=== PATIENT | male | born 1940 | race Caucasian/White ===

== ENCOUNTER → 2017-11-26 | Outpatient (CLI) | payer MEDICARE ==
--- NOTE | 2017-11-26 15:57 | XR ---
EXAMINATION TYPE: XR chest 2V DATE OF EXAM: 11/26/2017 COMPARISON: NONE HISTORY: Cough with COPD. TECHNIQUE: Frontal and lateral views of the chest are obtained. FINDINGS: There is no focal air space opacity, pleural effusion, or pneumothorax seen. Left basilar subsegmental platelike atelectasis is incidentally noted. The cardiac silhouette size is within norm al limits. The osseous structures are intact. Mild multilevel degenerative disc disease of the thor acic spine is noted. IMPRESSION: No acute cardiopulmonary process.
== END | disposition home or self-care (01) ==
LOC: RADXRMAIN 14:35
PROVIDERS: ATTEND Family Medicine
DX: R05 Cough (principal)
CPT/HCPCS: 71046

== ENCOUNTER → 2018-08-10 | Outpatient (CLI) | payer MEDICARE ==
[2018-08-10 08:25] LABS: Basophils # (A) 0.1 k/uL (0-0.2); Basophils % (A) 1 %; Eosinophils # (A) 0.2 k/uL (0-0.7); Eosinophils % (A) 3 %; HCT 42.3 % (39.0-53.0); HGB 13.9 gm/dL (13.0-17.5); Lymphocytes # (A) 2.4 k/uL (1.0-4.8); Lymphocytes % (A) 37 %; MCH 31.3 pg (25.0-35.0); MCHC 32.9 g/dL (31.0-37.0); MCV 94.9 fL (80.0-100.0); Mean Platelet Volume 7.6; Monocytes # (A) 0.5 k/uL (0-1.0); Monocytes % (A) 7 %; Neutrophils # (A) 3.1 k/uL (1.3-7.7); Neutrophils % (A) 49 %; Platelet Count 247 k/uL (150-450); RBC 4.46 m/uL (4.30-5.90); RDW 13.4 % (11.5-15.5); WBC 6.4 k/uL (3.8-10.6)
[2018-08-10 08:46] LABS: Albumin 3.9 g/dL (3.5-5.0); Calcium 9.7 mg/dL (8.4-10.2); Potassium 5.4 mmol/L (3.5-5.1); Total Bilirubin 0.4 mg/dL (0.2-1.3); Total Protein 6.9 g/dL (6.3-8.2)
== END | disposition home or self-care (01) ==
LOC: LABWHC1 07:27
PROVIDERS: ATTEND Family Medicine
DX: Z00.00 Encounter for general adult medical examination without abnormal findings (principal)
CPT/HCPCS: 36415; 80053; 80061; 84443; 85025

== ENCOUNTER 2018-10-05 10:04 | Day surgery (SDC) | payer MEDICARE ==
[2018-10-03 15:36] VITALS: BMI 33.3
[~2018-10-05 10:04] MED LIST: BUPIVACAINE (PF) 0.5% 4.5 ML, HYALURONIDASE, HUMAN RECOMB 150 UNIT, LIDOCAINE 2% (PF) 9... IO NR; LACTATED RINGERS 1,000 ML IV SCH; LIDOCAINE 1% 20 ML VIAL (10MG/ML) FOR IV START INTRADERMA PRN; MOXIFLOXACIN HCL 0.5% DROPS 3 ML BTL OP NR; ONDANSETRON 4 MG/2 ML VIAL IVP ONE
[2018-10-05] MEDS: TOBRAMYCIN 0.3% OPHTH DROPS 5 ML BTL LEFT EYE SCH ×4 (11:40→12:25)
[2018-10-05 11:59] VITALS: TEMP 98.2
[2018-10-05] MEDS ORDERED: PROPOFOL 10 MG/ML 20 ML VIAL IV ONE (12:42)
[2018-10-05] MEDS ORDERED: fentaNYL (PF) 50 MCG/ML 2 ML AMP ONE (12:42)
[2018-10-05] MEDS ORDERED: BALANCED SALT IRRIG SOLN COMB2 15 ML IRRIG.SOLN IRRIGATION ONE (12:52)
[2018-10-05] MEDS ORDERED: EPINEPHrine (PF) 0.3 ML in BALANCED SALT IRRIG SOLN COMB2 500 ML IRRIGATION ONE (12:53)
[2018-10-05] MEDS ORDERED: LIDOCAINE 1%-EPI 1:100,000 30 ML VIAL SQ ONE (14:01)
[2018-10-05] MEDS ORDERED: TETRACAINE 0.5% OPHTH (PF) DROPS 4 ML BTL LEFT EYE ONE (14:01)
--- NOTE | 2018-10-05 14:23 | P.OP ---
Date of Procedure: 10/05/18 Postoperative Diagnosis: XT left Procedure(s) Performed: same Implants: Recess/resect left Anesthesia: MAC, regional Surgeon: Benjamin Nielson Pathology: none sent Condition: stable Disposition: same day Indications for Procedure: double vision Operative Findings: No complications
[2018-10-05 14:57] VITALS: BP 166/88; PULSE 70; RESP 18
--- NOTE | 2018-10-05 23:38 | OP ---
OPERATIVE REPORT PROCEDURE: Medial rectus recession of 5 mm and lateral rectus recession of 6.5 mm of the left eye. PREOPERATIVE DIAGNOSIS: Intermittent exotropia with double vision. POSTOPERATIVE DIAGNOSIS: Intermittent exotropia with double vision. SURGEON: Dr. Benjamin Nielson. ANESTHESIA: Retrobulbar. ESTIMATED BLOOD LOSS: Less than 5 mL. SPECIMENS TAKEN: None. NARRATIVE: After obtaining the appropriate consent, the patient was brought to the operating room. There he was placed under cardiac monitoring. He was given propofol to put him into a twilight state and was then injected into the retrobulbar space using a 26-gauge Ann needle on a control syringe. A solution of 0.75% bupivacaine 1% lidocaine and hyaluronidase. Approximately 60 mL of this solution was injected into the retrobulbar space and a Honan balloon was placed on the eye at 40 mm for approximately 10 minutes. After confirming adequate anesthesia, he was then prepped and draped in the usual sterile manner. He was approached from the 12 o'clock position. Initial procedure on the eye was to confirm no undue restriction on the globe. The test was performed with without difficulty. Attention was first directed at the medial rectus and a conjunctival incision was created at about the 8 o'clock position using Debbie scissors down to bare sclera. Using a Green's hook, the medial rectus muscle was identified and the conjunctiva was brought over the tip of the muscle hook. A second Green's hook was then used to separate all adhesions from in and around the medial rectus muscle. It's original insertion point was marked with gentian jose. Using a bear care caliper, approximately 5 mm posterior to the limbus was identified and marked on the medial rectus muscle. Using 5-0 polyester suture, the central vascular core was tied off. This was followed by weaving each half of the muscle belly with a suture locking off the lateral edges of the muscle. The muscle was then amputated just distally from the suture placement within the muscle and the base of the muscle was amputated at its original insertion. The short muscle was now brought to the original insertion site and secured with the polyester suture using multiple knots to reduce slippage. Attention was then directed to the lateral rectus and performing a similar conjunctival incision down to bare sclera at the 4 o'clock position was performed again using a Green's hook. The lateral rectus was identified and all adhesions were from anteriorly and posteriorly to the muscle. Again a 5-0 Dacron suture was used to tie off the central vascular core and each half of the remaining double-arm suture was passed through each edge of the muscle belly, locking off the muscle. The muscle was then amputated from its original insertion site and a darren again using a bear care caliper was placed approximately 6.5 mm posterior to the original insertion. At this site the needle was passed partial thickness through the scleral wall and the suture was securely tied with multiple knots to reduce slippage. Conjunctival tissue in both areas was gently brought back into the original insertion and to ensure proper closure. A single 8-0 Vicryl suture was used to close the nasal and temporal areas where the incision was started. At the end of the case the patient received Maxitrol ointment, was patched and shielded in the usual manner. There were no complications from the procedure. He tolerated the procedure well and was returned to outpatient recovery in good condition. MMDORYL / IJN: [id number] /
== END 2018-10-05 15:01 | disposition home or self-care (01) ==
LOC: OR 10:04
PROVIDERS: ATTEND Ophthalmology
DX: H50.332 Intermittent monocular exotropia, left eye (principal); H53.2 Diplopia; H53.002 Unspecified amblyopia, left eye; H16.103 Unspecified superficial keratitis, bilateral; H04.129 Dry eye syndrome of unspecified lacrimal gland; H00.026 Hordeolum internum left eye, unspecified eyelid; H00.023 Hordeolum internum right eye, unspecified eyelid; H52.223 Regular astigmatism, bilateral; H52.4 Presbyopia; H52.03 Hypermetropia, bilateral; H02.822 Cysts of right lower eyelid; M10.9 Gout, unspecified; I11.9 Hypertensive heart disease without heart failure; J43.9 Emphysema, unspecified; Z96.1 Presence of intraocular lens; Z79.82 Long term (current) use of aspirin; Z79.899 Other long term (current) drug therapy; Z86.73 Personal history of transient ischemic attack (TIA), and cerebral infarction without residual deficits; Z87.891 Personal history of nicotine dependence
CPT/HCPCS: 67312; J3470; J2001; J0171; J3010; J2704

== ENCOUNTER → 2019-08-11 | Outpatient (CLI) | payer MEDICARE ==
--- NOTE | 2019-08-11 14:54 | XR ---
EXAMINATION TYPE: XR chest 2V DATE OF EXAM: 08/11/2019 COMPARISON: Chest x-ray 11/26/2017 HISTORY: Cough TECHNIQUE: Frontal and lateral views of the chest are obtained. FINDINGS: Probable scarring along the left lung base. There is no pleural effusion or pneumothorax se en. The cardiac silhouette size is within normal limits. Postop changes are noted to the right shoul alonso. The osseous structures are intact. IMPRESSION: No acute cardiopulmonary process.
== END | disposition home or self-care (01) ==
LOC: RADXRMAIN 12:17
PROVIDERS: ATTEND Family Medicine
DX: R05 Cough (principal)
CPT/HCPCS: 71046

== ENCOUNTER → 2019-08-29 | Outpatient (CLI) | payer MEDICARE ==
[2019-08-29 11:38] LABS: Basophils % (A) 0 %; Eosinophils # (A) 0.2 k/uL (0-0.7); Eosinophils % (A) 2 %; HCT 43.3 % (39.0-53.0); HGB 14.3 gm/dL (13.0-17.5); Lymphocytes # (A) 2.5 k/uL (1.0-4.8); Lymphocytes % (A) 30 %; MCH 31.3 pg (25.0-35.0); MCV 94.7 fL (80.0-100.0); Mean Platelet Volume 6.2; Monocytes # (A) 0.5 k/uL (0-1.0); Monocytes % (A) 6 %; Neutrophils # (A) 4.9 k/uL (1.3-7.7); Neutrophils % (A) 59 %; Platelet Count 267 k/uL (150-450); RBC 4.57 m/uL (4.30-5.90); RDW 12.7 % (11.5-15.5); WBC 8.2 k/uL (3.8-10.6)
[2019-08-29 16:26] LABS: African American GFR (CKD) 74.7 (60.0-200.0); Albumin 4.5 g/dL (3.80-4.90); Albumin/Globulin Ratio 2.25 (1.60-3.17); Anion Gap 8.6 mmol/L (4.00-12.00); BUN/Creat Ratio 17.27 Ratio (12.00-20.00); Calcium 9.5 mg/dL (8.7-10.3); Carbon Dioxide 29.4 mmol/L (21.6-31.8); Chol/HDL Ratio 3.94; LDL Cholesterol,Calculated 110.2 mg/dL (0.0-131.0); Total Bilirubin 0.7 mg/dL (0.2-1.2); Total Protein 6.5 g/dL (6.2-8.2); VLDL Calculation 30.8 mg/dL (5.00-40.00)
== END | disposition home or self-care (01) ==
LOC: LABWHC1 09:23
PROVIDERS: ATTEND Family Medicine
DX: Z00.00 Encounter for general adult medical examination without abnormal findings (principal); I10 Essential (primary) hypertension
CPT/HCPCS: 36415; 80053; 80061; 84443; 85025

== ENCOUNTER → 2020-08-26 | Outpatient (CLI) | payer MEDICARE ==
[2020-08-26 09:39] LABS: HCT 45.1 % (39.0-53.0); HGB 14.1 gm/dL (13.0-17.5); MCH 30.3 pg (25.0-35.0); MCHC 31.3 g/dL (31.0-37.0); MCV 96.8 fL (80.0-100.0); Mean Platelet Volume 7.1; Platelet Count 268 k/uL (150-450); RBC 4.66 m/uL (4.30-5.90); RDW 13.1 % (11.5-15.5); WBC 7.6 k/uL (3.8-10.6)
[2020-08-26 14:32] LABS: ALT 21 U/L (10-49); AST 22 U/L (14-35); African American GFR (CKD) 83.2 (60.0-200.0); Albumin/Globulin Ratio 1.79 (1.60-3.17); Alkaline Phosphatase 64 U/L (41-126); Calcium 9.5 mg/dL (8.7-10.3); Carbon Dioxide 28.2 mmol/L (21.6-31.8); Chloride 107 mmol/L (96-109); Chol/HDL Ratio 3.67; Cholesterol 180 mg/dL (0-200); Globulin 2.4 g/dL (1.6-3.3); Glucose 98 mg/dL (70-110); LDL Cholesterol,Calculated 105.4 mg/dL (0.0-131.0); Non-African American GFR(CKD) 71.8 (60.0-200.0); Potassium 5.2 mmol/L (3.5-5.5); Sodium 142 mmol/L (135-145); Total Bilirubin 0.6 mg/dL (0.2-1.2); Total Protein 6.7 g/dL (6.2-8.2)
[2020-08-26 15:04] LABS: Prostate Specific Antigen <0.1 ng/mL (0.0-6.5)
== END | disposition home or self-care (01) ==
LOC: LABWHC1 08:03
PROVIDERS: ATTEND Family Medicine
DX: C61 Malignant neoplasm of prostate (principal); I10 Essential (primary) hypertension; J44.9 Chronic obstructive pulmonary disease, unspecified; I63.9 Cerebral infarction, unspecified
CPT/HCPCS: 36415; 80053; 80061; 84153; 84443; 85027

== ENCOUNTER 2024-07-20 12:31 | Emergency (ER) | payer MEDICARE ==
[2024-07-20] MEDS: LORazepam 2 MG/ML INJ IV STA ×2 (12:34→12:52)
[2024-07-20] MEDS: SODIUM CHLORIDE 0.9% 1,000 ML IV STA (12:34)
[2024-07-20 12:47] LABS: Glucose,Whole Blood 113 mg/dL (70-110)
[2024-07-20] MEDS: levETIRAcetam IV 500 MG/5 ML VIAL IVP STA (12:52)
--- NOTE | 2024-07-20 13:03 | ED ---
General Adult HPI - General Stated complaint: poss CVA Time Seen by Provider: 07/20/24 12:31 Source: EMS, RN notes reviewed, old records reviewed - History of Present Illness Initial comments: Patient is an 83-year-old male with past medical history known of hypertension as well as prior CVA with residual visual deficits presents emergency department as a possible stroke. All of history is obtained from EMS as the patient had a seizure upon arrival to the emergency department and is currently postictal. Last known well was at approximately 10:30 AM this morning, which is approximately 2 hours prior to arrival. Baseline seems to be ANO x 4. When EMS arrived, patient was with neighbors not . Patient had a flaccid left upper extremity as well as dysarthria but was understandable. EMS brought the patient to the emergency department for evaluation. Upon arrival, patient was beginning to see us when they were moving him from the stretcher onto the ER stretcher. Patient had a tonic-clonic seizure at that time that lasted approximately 1 to 2 minutes and patient was administered 2 mg of IM Ativan. - Related Data Home Medications Medication Instructions Recorded Confirmed Dipyridamole-Aspirin 200-25 mg 1 each PO DAILY 10/03/18 10/03/18 [Aggrenox] Losartan Potassium [Cozaar] 100 mg PO HS 10/03/18 10/03/18 Multivitamins, Thera [Multivitamin 1 tab PO DAILY 10/03/18 10/03/18 (formulary)] Tiotropium [place] [Spiriva 2 spray INHALATION DAILY 10/03/18 10/03/18 Respimat] Indomethacin [Indocin] 50 mg PO PRN 10/05/18 [place]-3 Fatty Acids/Fish Oil 1,300 mg PO DAILY 10/05/18 10/05/18 [[place]-3 Fish Oil 1,200 mg Sfgl] Ubiquinol [Co-Veratrol] 100 mg PO DAILY 10/05/18 10/05/18 Allergies Allergy/AdvReac Type Severity Reaction Status Date / Time No Known Allergies Allergy Verified 10/05/18 11:46 Review of Systems ROS Statement: Those systems with pertinent positive or pertinent negative responses have been documented in the HPI. ROS Other: All systems not noted in ROS Statement are negative. Past Medical History Past Medical History: Cancer, COPD, CVA/TIA Additional Past Medical History / Comment(s): cva-2007,2012, prostate History of Any Multi-Drug Resistant Organisms: None Reported Past Surgical History: Joint Replacement, Prostate Surgery Additional Past Surgical History / Comment(s): hemorrhoid, vasectomy, rt rotator cuff,cystoscopy, lt hip replacement, stephane cataract surgery Past Anesthesia/Blood Transfusion Reactions: Motion Sickness Past Psychological History: No Psychological Hx Reported Past Alcohol Use History: Daily Additional Past Alcohol Use History / Comment(s): quit 2011,smoked [id number] 1 pk/2 days Past Drug Use History: None Reported - Past Family History Mother Family Medical History: Cancer General Exam - General Exam Comments Initial Comments: General: Appears in no acute distress. HEAD: Normal with no signs of head trauma. EYES: PERRLA, EOMI, conjunctiva normal, no discharge. Pupils are 2 mm and equal bilaterally. ENT: Hearing grossly intact, normal oropharynx. Bleeding from the tongue secondary to tongue laceration. Patient has an approximately 1 cm tongue laceration.Bleeding is controlled. RESPIRATORY: Clear breath sounds bilaterally. No wheezes, rales, or rhonchi. C/V: Regular rate and rhythm. S1 and S2 auscultated, no edema, peripheral pulses 2+ and intact throughout ABD: Abd is soft, nontender, nondistended EXT: Normal range of motion, no obvious deformity SKIN: No rashes or lesions observed on exposed skin. NEURO: Not alert or oriented but patient appears currently postictal and patient has received Ativan. Unable to obtain an accurate NIH. NIH per EMS was 3-4 based on their exam for left upper extremity paralysis as well as dysarthria. Course Vital Signs 07/20/24 07/20/24 07/20/24 12:35 13:18 13:30 Pulse Rate 129 H 109 H 98 Respiratory 20 17 16 Rate Blood Pressure 188/66 137/103 106/81 O2 Sat by Pulse 98 96 84 L Oximetry 07/20/24 07/20/24 13:45 14:00 Pulse Rate 105 H Respiratory 26 H Rate Blood Pressure 106/81 137/79 O2 Sat by Pulse 87 L 92 L Oximetry Medical Decision Making - Medical Decision Making Was pt. sent in by a medical professional or institution (, PA, MASTICATOR, urgent care, hospital, or halfway...) When possible be specific @ -No Did you speak to anyone other than the patient for history (EMS, parent, family, police, friend...)? What history was obtained from this source @ -EMS provided most of the patient's past medical history.Patient's present at bedside after CT images. Was not with the patient this morning. Does state patient is a full code. Patient is on aspirin and Plavix. No known falls or trauma per patient's . Baseline is alert and oriented x 4 with the visual issues from previous stroke. No history of seizures. Did you review nursing and triage notes (agree or disagree)? Why? @ -I reviewed and agree with nursing and triage notes Were old charts reviewed (outside hosp., previous admission, EMS record, old EKG, old radiological studies, urgent care reports/EKG's, halfway records)? Report findings @ -Medication list reviewed which showed patient was previously on Plavix but unknown if he is currently taking it. Also history of being on aspirin. Differential Diagnosis (chest pain, altered mental status, abdominal pain women, abdominal pain men, vaginal bleeding, weakness, fever, dyspnea, syncope, headac he, dizziness, GI bleed, back pain, seizure, CVA, palpatations, mental health, musculoskeletal)? @ -Differential CVA Ischemic stroke, hemorrhagic stroke, brain tumor, atypical migraine, Wernicke's encephalopathy, seizure, multiple sclerosis, meningitis, encephalitis, hypoglycemia, Guillain-Araiza, electrolytes disturbance, myasthenia gravis.... This is not meant to be an all-inclusive list Differential Seizure: Recurrent seizure disorder, febrile seizure, alcohol withdrawal, stimulants, meningitis, encephalitis, intercranial hemorrhage, intracranial tumor, stroke, eclampsia, thyrotoxicosis, hypocalcemia, hyponatremia, hypernatremia, hypomagnesemia, psychogenic, this is not meant to be an all-inclusive list. EKG interpreted by me (3pts min.). @ -As above X-rays interpreted by me (1pt min.). @ -Chest x-ray reveals no obvious acute cardiopulmonary process.Patient had a poor inspiratory effort with atelectasis. CT interpreted by me (1pt min.). @ -CT brain and CT angiogram head and neck interpreted by Dr. Falcon as well as myself. No obvious acute intracranial hemorrhage or process. Dr. Shah to evaluate the CTA and did not interpret any large vessel occlusion. U/S interpreted by me (1pt. min.). @ -None done What testing was considered but not performed or refused? (CT, X-rays, U/S, labs)? Why? @ -None What meds were considered but not given or refused? Why? @ -None Did you discuss the management of the patient with other professionals (professionals i.e. , PA, MASTICATOR, lab, RT, psych nurse, social science manager, technologist development, teacher, fourth officer, watch case polisher)? Give summary @ -I discussed management with neurocritical care on-call, Dr. Falcon. Patient was made a code thrombolytic. Relative exclusionary criteria does include patient's age as well as seizure. We discussed management for the patient and he was in agreement plan for stat CT and CTA. Was in agreement with plan for the Ativan for seizures as well as the IV Keppra bolus. Plan is for thrombolytics if patient has an obvious large vessel occlusion but otherwise medical management. Recommended transfer to [facility] either way. I will update him on any clinical changes. I spoke with [facility] accepting ER physician Dr. Sahu who accepted the transfer. He will also be updated if any clinical change for the patient. CT imaging negative for any obvious acute hemorrhage or process. No obvious acute stroke. Confirm with Dr. Falcon who was interpreting and on the phone with me while he spoke with him. Still reiterated that the patient should be transferred to [facility] for which EMS is already here waiting. Recommended administering aspirin. Recommended transfer for seizure and status epilepticus workup. Recommended no thrombolytics at this time. Was smoking cessation discussed for >3mins.? @ -No Was critical care preformed (if so, how long)? @ -Yes, 31 minutes Were there social determinants of health that impacted care today? How? (Homelessness, low income, unemployed, alcoholism, drug addiction, transportation, low edu. Level, literacy, decrease access to med. care, assisted, rehab)? @ -No Was there de-escalation of care discussed even if they declined (Discuss DNR or withdrawal of care, Hospice)? DNR status @ -No What co-morbidities impacted this encounter? (DM, HTN, Smoking, COPD, CAD, Cancer, CVA, ARF, Chemo, Hep., AIDS, mental health diagnosis, sleep apnea, morbid obesity)? @ -Prior CVA with residual visual deficits Was patient admitted / discharged? Hospital course, mention meds given and route, prescriptions, significant lab abnormalities, going to OR and other pertinent info. @ -Based on the patient's presentation and physical exam, patient presents emergency department complaining of possible CVA. Patient was seizing upon presentation. Based on the NIH per EMS, he had at least an NIH of 3-4. Last known well was 10:30 AM which is 2 hours ago. Patient was administered 2 mg IM Ativan which did help with the patient's seizure. He is postictal following. Was given a dose of IV Keppra as well as started on IV fluids. Patient is mildly hypertensive. Patient was made a code thrombolytic despite the relative contraindications of his age as well as new onset seizure. I discussed management with neurocritical care on-call, Dr. Falcon. Patient was made a code thrombolytic. Relative exclusionary criteria does include patient's age as well as seizure. We discussed management for the patient and he was in agreement plan for stat CT and CTA. Was in agreement with plan for the Ativan for seizures as well as the IV Keppra bolus. Plan is for thrombolytics if patient has an obvious large vessel occlusion but otherwise medical management. Recommended transfer to [facility] either way. I will update him on any clinical changes. I spoke with [facility] accepting ER physician Dr. Sahu who accepted the transfer. He will also be updated if any clinical change for the patient. CT imaging negative for any obvious acute hemorrhage or process. No obvious acute stroke. Confirm with Dr. Falcon who was interpreting and on the phone with me while he spoke with him. Still reiterated that the patient should be transferred to [facility] for which EMS is already here waiting. Recommended administering aspirin. Recommended transfer for seizure and status epilepticus workup.Recommended no thrombolytics at this time.Risks far outweigh the benefits. Multiple relative exclusion criterias. Patient does have some r ecovery of function. Patient's tongue laceration did have controlled bleeding at this time. Patient remains postictal at time of transfer. Will transfer on oxygen. He is a little wheezy and will be given a breathing treatment prior to transfer.Patient did have a documented low oxygen saturation however he is mouth breathing and his postictal state while he is sleeping likely has some degree of sleep apnea. When he is laying still oxygen saturations remained 90 to 93%. Patient protecting airway at time of discharge. Prior to transfer, and his postictal state patient was moving the left upper extremity which per EMS prior to arrival was the paralyzed extremity. This seems to be an improvement in symptoms. Still difficult to interpret NIH at this time. Undiagnosed new problem with uncertain prognosis? @ -No Drug Therapy requiring intensive monitoring for toxicity (Heparin, Nitro, I nsulin, Cardizem)? @ -No Were any procedures done? @ -No Diagnosis/symptom? @ -CVA, new onset seizure and postictal state Acute, or Chronic, or Acute on Chronic? @ -Acute Uncomplicated (without systemic symptoms) or Complicated (systemic symptoms)? @ -Complicated Side effects of treatment? @ -No Exacerbation, Progression, or Severe Exacerbation? @ -No Poses a threat to life or bodily function? How? (Chest pain, [place], MT, pneumonia, PE, COPD, DKA, ARF, appy, cholecystitis, CVA, Diverticulitis, Homicidal, Suicidal, threat to staff... and all critical care pts) @ -Yes - Lab Data Result diagrams: 07/20/24 12:35 07/20/24 12:35 Lab Results 07/20/24 07/20/24 07/20/24 Range/Units 12:35 12:35 12:35 WBC 14.9 H (3.8-10.6) k/uL RBC 5.28 (4.30-5.90) m/uL Hgb 15.7 (13.0-17.5) gm/dL Hct 50.7 (39.0-53.0) % MCV 95.9 (80.0-100.0) fL MCH 29.7 (25.0-35.0) pg MCHC 31.0 (31.0-37.0) g/dL RDW 14.0 (11.5-15.5) % Plt Count 355 (150-450) k/uL MPV 8.1 Neutrophils % (Manual) 57 % Lymphocytes % (Manual) 34 % Monocytes % (Manual) 7 % Eosinophils % (Manual) 2 % Neutrophils # (Manual) 8.49 H (1.3-7.7) k/uL Lymphocytes # (Manual) 5.07 H (1.0-4.8) k/uL Monocytes # (Manual) 1.04 H (0-1.0) k/uL Eosinophils # (Manual) 0.30 (0-0.7) k/uL Nucleated RBCs 0 (0-0) /100 WBC Manual Slide Review Performed RBC Morphology Normal Hypochromasia Marked PT 10.5 (10.0-12.5) sec INR 0.9 (<1.2) APTT 27.5 (22.0-30.0) sec Sodium 144 (137-145) mmol/L Potassium 3.5 (3.5-5.1) mmol/L Chloride 107 (98-107) mmol/L Carbon Dioxide 11 L (22-30) mmol/L Anion Gap 26 mmol/L BUN 21 H (9-20) mg/dL Creatinine 1.36 H (0.66-1.25) mg/dL Est GFR (CKD-EPI)AfAm 56 (>60 ml/min/1.73 sqM) Est GFR (CKD-EPI)NonAf 48 (>60 ml/min/1.73 sqM) Glucose 134 H (74-99) mg/dL POC Glucose (mg/dL) (70-110) mg/dL POC Glu Child Care Associate ID Lactic Ac Sepsis Rflx Plasma Lactic Acid Gurpreet (0.7-2.0) mmol/L Calcium 10.2 (8.4-10.2) mg/dL Total Bilirubin 1.1 (0.2-1.3) mg/dL AST 27 (17-59) U/L ALT 20 (4-49) U/L Alkaline Phosphatase 89 (38-126) U/L Creatine Kinase 146 (55-170) U/L Total Protein 8.1 (6.3-8.2) g/dL Albumin 5.1 H (3.5-5.0) g/dL 07/20/24 07/20/24 07/20/24 Range/Units 12:35 12:36 13:21 WBC (3.8-10.6) k/uL RBC (4.30-5.90) m/uL Hgb (13.0-17.5) gm/dL Hct (39.0-53.0) % MCV (80.0-100.0) fL MCH (25.0-35.0) pg MCHC (31.0-37.0) g/dL RDW (11.5-15.5) % Plt Count (150-450) k/uL MPV Neutrophils % (Manual) % Lymphocytes % (Manual) % Monocytes % (Manual) % Eosinophils % (Manual) % Neutrophils # (Manual) (1.3-7.7) k/uL Lymphocytes # (Manual) (1.0-4.8) k/uL Monocytes # (Manual) (0-1.0) k/uL Eosinophils # (Manual) (0-0.7) k/uL Nucleated RBCs (0-0) /100 WBC Manual Slide Review RBC Morphology Hypochromasia PT (10.0-12.5) sec INR (<1.2) APTT (22.0-30.0) sec Sodium (137-145) mmol/L Potassium (3.5-5.1) mmol/L Chloride (98-107) mmol/L Carbon Dioxide (22-30) mmol/L Anion Gap mmol/L BUN (9-20) mg/dL Creatinine (0.66-1.25) mg/dL Est GFR (CKD-EPI)AfAm (>60 ml/min/1.73 sqM) Est GFR (CKD-EPI)NonAf (>60 ml/min/1.73 sqM) Glucose (74-99) mg/dL POC Glucose (mg/dL) 113 H (70-110) mg/dL POC Glu Child Care Associate ID Renee Shah Lactic Ac Sepsis Rflx Y Plasma Lactic Acid Gurpreet 18.6 H* (0.7-2.0) mmol/L Calcium (8.4-10.2) mg/dL Total Bilirubin (0.2-1.3) mg/dL AST (17-59) U/L ALT (4-49) U/L Alkaline Phosphatase (38-126) U/L Creatine Kinase (55-170) U/L Total Protein (6.3-8.2) g/dL Albumin (3.5-5.0) g/dL - EKG Data -: EKG Interpreted by Me EKG Comments: 12-lead Electrocardiogram Interpretation Note EKG was reviewed and interpreted by myself. 12-lead ECG performed at 1306 is interpreted by me as revealing sinus tachycardia at a rate of 105 beats per minute. Left axis deviation. DC interval is 209 ms, QRS durations 114 ms, QTc is 423 ms. PVC present.. There were no ST or T wave abnormalities to suggest myocardial ischemia or injury. R wave progression across the precordium was satisfactory. By my interpretation this EKG is non-diagnostic for acute ischemia. Critical Care Time Critical Care Time: Yes Total Critical Care Time: 31 Disposition Clinical Impression: Cerebrovascular accident (CVA), New onset seizure Disposition: OTHER INSTITUTION NOT DEFINED Condition: Serious Instructions (If sedation given, give patient instructions): Seizure/Epilepsy Discharge Instructions & Follow-Up Referrals: Nonstaff,Physician [REFERRING] - 1-2 days Time of Disposition: 13:41 - Out of Hospital Transfer - Req. Specs Out of Hospital Transfer - Requested Specifics: Other Emergency Center (transferred for escalation of care. CVA vs complex new onset seizure vs. status epilepticus)
[2024-07-20 13:07] LABS: HCT 50.7 % (39.0-53.0); HGB 15.7 gm/dL (13.0-17.5); Hypochromasia Marked; MCH 29.7 pg (25.0-35.0); MCV 95.9 fL (80.0-100.0); Mean Platelet Volume 8.1; Platelet Count 355 k/uL (150-450); RBC 5.28 m/uL (4.30-5.90); WBC 14.9 k/uL (3.8-10.6)
--- NOTE | 2024-07-20 13:07 | CT ---
EXAMINATION TYPE: CODE STROKE: CT brain wo contr DATE OF EXAM: 07/20/2024 COMPARISON: 09/13/2012 HISTORY: code stroke CT DLP: 1099.[address] of the brain was performed. Examination is limited by patient motion. The ventricles, basal cisterns and sulci overlying the cerebral convexities demonstrate mild enlargem ent. There is decreased attenuation right temporal parietal region which does not appear to be acute in nature. Additional areas of decreased attenuation left parietal occipital region limited given art ifact from patient motion. There is no evidence for intracranial hemorrhage or sulcal effacement. There is decreased attenuation about the periventricular white matter and deep white matter of both c erebral hemispheres, compatible with chronic small vessel ischemia. Differential diagnosis does inclu de demyelination. No mass effects are seen.No midline shift. Osseous calvarium is intact. If symptoms persist consider MRI. IMPRESSION: 1. Overall limited study given patient motion. No obvious evidence for intracranial hemorrhage. There is decreased attenuation are nonspecific although likely remote right temporal parietal region. [facility], , 07/20/2024 1:05 PM
[2024-07-20 13:08] LABS: INR 0.9 (<1.2); Partial Thromboplastin Time 27.5 sec (22.0-30.0); Prothrombin Time 10.5 sec (10.0-12.5)
[2024-07-20] MEDS: LORazepam 2 MG/ML INJ IM STA (13:09)
[2024-07-20 13:11] LABS: ALT 20 U/L (4-49); AST 27 U/L (17-59); African American GFR (CKD) 56 (>60 ml/min/1.73 sqM); Albumin 5.1 g/dL (3.5-5.0); Alkaline Phosphatase 89 U/L (38-126); Anion Gap 26 mmol/L; Blood Urea Nitrogen 21 mg/dL (9-20); Calcium 10.2 mg/dL (8.4-10.2); Carbon Dioxide 11 mmol/L (22-30); Chloride 107 mmol/L (98-107); Creatine Kinase 146 U/L (55-170); Glucose 134 mg/dL (74-99); Non-African American GFR(CKD) 48 (>60 ml/min/1.73 sqM); Potassium 3.5 mmol/L (3.5-5.1); Sodium 144 mmol/L (137-145); Total Bilirubin 1.1 mg/dL (0.2-1.3); Total Protein 8.1 g/dL (6.3-8.2)
--- NOTE | 2024-07-20 13:46 | CT ---
EXAMINATION TYPE: CT angio head neck DATE OF EXAM: 07/20/2024 COMPARISON: None HISTORY: Neuro deficit, acute, stroke suspected CONTRAST: Performed with IV Contrast, patient injected with 100 mL of Isovue 300. Combination Contrast CTA cervical carotids and [place] CTA cervical carotids with 3-D recons truction Contrast CTA of the cervical carotids was performed 3-D reconstruction imaging obtained at a separate workstation. Right carotid system: Mild plaque is seen of the right common carotid artery. There is moderate plaq ue also noted at the carotid bulb and proximal ICA. Estimated diameter reduction of at least 60%. Pa tient motion limits evaluation. ECA is patent. Right vertebral artery appears unremarkable. Left carotid system: Mild plaque is seen of the left common carotid artery. There is moderate plaque also noted at the carotid bulb and proximal ICA. Estimated diameter reduction of at least 60% proxi mal left ICA. Patient motion limits evaluation. ECA is patent. Left vertebral artery appears unremar kable. IMPRESSION: 1. Limited study by patient motion. At least 60% diameter reduction suggested of the bilateral proxim al ICAs. CTA [place] with 3-D reconstruction Contrast CTA of the [place] was performed 3-D reconstruction imaging obtained at a separate workstation. Vertebrobasilar system as well as intracranial portions of the internal carotid arteries and their ma laura tributaries appear patent patent although there is a Diminutive left MCA branch pattern. Correlat e clinically.I do not see evidence for sizable aneurysm or vascular malformation. Please note MRI pr ovides greater sensitivity and specificity. Visualized brain appears grossly unremarkable. IMPRESSION: 1. Diminutive left MCA branch pattern. Correlate clinically. NASCET criteria was used in interpretation of this exam? [facility], , 07/20/2024 1:43 PM
[2024-07-20] MEDS: ASPIRIN 300 MG SUPP RECTAL STA (13:51)
--- NOTE | 2024-07-20 13:55 | XR ---
EXAMINATION TYPE: XR chest 1V portable DATE OF EXAM: 07/20/2024 COMPARISON: 08/11/2019 HISTORY: Soreness of breath TECHNIQUE: Single frontal view of the chest is obtained. FINDINGS: Limited inspiration and patient rotation. Heart size mildly prominent and there is basilar subsegmental consolidation. No overt failure pneumothorax. No pleural effusion. Osteopenia and posts urgical change right shoulder. Degenerative change of the spine.. IMPRESSION: Basilar atelectasis favored over pneumonia correlate clinically. [facility], , 07/20/2024 1:53 PM
[2024-07-20] MEDS: IPRATROPIUM-ALBUTEROL 3 ML NEB INHALATION STA (13:58)
[2024-07-20 13:59] VITALS: PULSE 105; RESP 26
[2024-07-20 14:04] VITALS: BP 137/79
[2024-07-20 14:11] LABS: Lymphocytes # (M) 5.07 k/uL (1.0-4.8); Monocytes # (M) 1.04 k/uL (0-1.0); Neutrophils # (M) 8.49 k/uL (1.3-7.7); Neutrophils % (M) 57 %; Nucleated Red Blood Cells 0 /100 WBC (0-0); Total Cells Counted 100
[2024-07-20 14:12] LABS: RBC Morphology Normal
== END 2024-07-20 14:04 | disposition other institution (70) ==
LOC: EC 12:31
CPT/HCPCS: 36415; 70450; 70496; 70498; 71045; 80053; 82550; 83605; 85025; 85610; 85730; 93005; 96361; 96374; 96375; 96376; 99291

== ENCOUNTER 2024-11-15 00:20 | Emergency (ER) | payer MEDICARE ==
[2024-11-15] MEDS ORDERED: ETOMIDATE 2 MG/ML 10 ML VIAL ONE (00:23)
[2024-11-15 00:25] LABS: Glucose,Whole Blood 179 mg/dL (70-110)
[2024-11-15] MEDS: MIDAZOLAM 1 MG/ML 5 ML VIAL IV STA (00:29)
[2024-11-15] MEDS: fentaNYL (PF) 50 MCG/ML 2 ML AMP IVP STA (00:35)
[2024-11-15] MEDS ORDERED: fentaNYL (PF) 50 MCG/ML 2 ML AMP IVP PRN (00:37)
[2024-11-15] MEDS: SODIUM CHLORIDE 0.9% 1,000 ML IV STA (00:45)
[2024-11-15 00:46] LABS: Basophils # (A) 0.2 k/uL (0-0.2); Basophils % (A) 1 %; Eosinophils # (A) 0.2 k/uL (0-0.7); Eosinophils % (A) 1 %; HGB 15.1 gm/dL (13.0-17.5); Hypochromasia Marked; Lymphocytes % (A) 38 %; MCHC 30.2 g/dL (31.0-37.0); MCV 96.1 fL (80.0-100.0); Mean Platelet Volume 8.1; Monocytes # (A) 1.5 k/uL (0-1.0); Monocytes % (A) 7 %; Neutrophils # (A) 10.6 k/uL (1.3-7.7); Neutrophils % (A) 50 %; Platelet Count 306 k/uL (150-450); RBC 5.21 m/uL (4.30-5.90); RDW 13.8 % (11.5-15.5); WBC 21.1 k/uL (3.8-10.6)
--- NOTE | 2024-11-15 00:52 | ED ---
General Adult HPI - General Stated complaint: AMS, Seizures Source: EMS Mode of arrival: EMS Limitations: altered mental status - History of Present Illness Initial comments: Patient is a patient is an 83-year-old gentleman past medical history of prior CVA presenting today for altered mental status. Patient was last known normal 1 hour prior to arrival. He was found by his in bed unresponsive. EMS arrived patient required assisted ventilations. He had a 32nd tonic-clonic seizure followed by second seizure. He was given 4 mg IV Versed by EMS which did terminate his seizure. Patient was noted to have a left gaze deviation, pinpoint pupils, and otherwise was unresponsive. Patient had a stroke reportedly back in June. He is currently on Plavix. There is no concern for head trauma. Blood glucose for EMS was 190. - Related Data Home Medications Medication Instructions Recorded Confirmed Dipyridamole-Aspirin 200-25 mg 1 each PO DAILY 10/03/18 10/03/18 [Aggrenox] Losartan Potassium [Cozaar] 100 mg PO HS 10/03/18 10/03/18 Multivitamins, Thera [Multivitamin 1 tab PO DAILY 10/03/18 10/03/18 (formulary)] Tiotropium [place] [Spiriva 2 spray INHALATION DAILY 10/03/18 10/03/18 Respimat] Indomethacin [Indocin] 50 mg PO PRN 10/05/18 [place]-3 Fatty Acids/Fish Oil 1,300 mg PO DAILY 10/05/18 10/05/18 [[place]-3 Fish Oil 1,200 mg Sfgl] Ubiquinol [Co-Veratrol] 100 mg PO DAILY 10/05/18 10/05/18 Allergies Allergy/AdvReac Type Severity Reaction Status Date / Time No Known Allergies Allergy Verified 10/05/18 11:46 Review of Systems ROS Statement: Those systems with pertinent positive or pertinent negative responses have been documented in the HPI. ROS Other: All systems not noted in ROS Statement are negative. Past Medical History Past Medical History: Cancer, COPD, CVA/TIA Additional Past Medical History / Comment(s): cva-2007,2012, prostate History of Any Multi-Drug Resistant Organisms: None Reported Past Surgical History: Joint Replacement, Prostate Surgery Additional Past Surgical History / Comment(s): hemorrhoid, vasectomy, rt rotator cuff,cystoscopy, lt hip replacement, stephane cataract surgery Past Anesthesia/Blood Transfusion Reactions: Motion Sickness Past Psychological History: No Psychological Hx Reported Past Alcohol Use History: Daily Past Drug Use History: None Reported - Past Family History Mother Family Medical History: Cancer General Exam - General Exam Comments Initial Comments: PE: CONSTITUTIONAL: Apparent distress, unresponsive, actively receiving assisted ventilations SKIN: [Cool, dry, no jaundice, hives or petechiae trunk appears mottled] EYES:[ pupils are equally round, no spontaneous extraocular movements, no n ystagmus, pinpoint pupils left gaze deviation ] HENT: [normocephalic, atraumatic, moist mucus membranes, oropharynx clear without exudates] NECK: , [normal appearance] PULMONARY: [Scattered rhonchi bilaterally with assisted ventilations, bilateral breath sounds present ] CARDIOVASCULAR:[Tachycardia, regular rate and rhythm, normal S1 and S2. No appreciated murmurs, rubs or gallops. Strong radial pulses with intact distal perfusion. No lower extremity edema] GASTROINTESTINAL: [soft, active bowel sounds throughout, no guarding, mildly distended,. No hepatosplenomegaly] GENITOURINARY: MUSCULOSKELETAL: [Extremities have no gross deformity, no edema, redness, or swelling. ] NEUROLOGIC: [_a/o x 0, GCS of 3, left gaze deviation, does not withdraw extremities to painful stimuli in any of 4 extremities, no posturing] PSYCHIATRIC: Unable to assess Limitations: altered mental status Course Vital Signs 11/15/24 11/15/24 11/15/24 00:31 00:34 00:38 Temperature 98.9 F Pulse Rate 121 H Respiratory 20 Rate Blood Pressure 135/57 O2 Sat by Pulse 97 Oximetry Fraction of 100 100 Inspired Oxygen (FIO2) 11/15/24 11/15/24 11/15/24 00:59 01:00 01:10 Temperature Pulse Rate 108 H 108 H 105 H Respiratory 31 H 31 H 30 H Rate Blood Pressure 118/53 104/42 92/49 O2 Sat by Pulse 100 100 100 Oximetry Fraction of Inspired Oxygen (FIO2) 11/15/24 11/15/24 11/15/24 01:20 01:35 01:40 Temperature 98.4 F Pulse Rate 101 H 98 98 Respiratory 18 18 18 Rate Blood Pressure 90/44 91/45 93/52 O2 Sat by Pulse 100 100 100 Oximetry Fraction of Inspired Oxygen (FIO2) 11/15/24 11/15/24 01:45 01:50 Temperature 99.5 F Pulse Rate 96 97 Respiratory 18 18 Rate Blood Pressure 105/57 112/72 O2 Sat by Pulse 100 100 Oximetry Fraction of Inspired Oxygen (FIO2) - Reevaluation(s) Reevaluation #1: Case has been discussed with Dr. Luna, neurointerventional list at [facility]. As patient has been to [place] on before after having seizure-like activity back in June, he will review patient's chart, scans and coming back. 11/15/24 00:52 Reevaluation #2: Case discussed with Dr. Hall, who was able to evaluate patient's imaging and prior charts. No evidence of large vessel occlusion on CTA though it is a poor study, suspects likely status epilepticus however given sudden onset of symptoms with neurodeficits patient is still candidate for TNK. I will contact patient's to further discuss, patient will require transfer to [facility] for continuous EEG and further monitoring. 11/15/24 01:06 EKG Findings - EKG Comments: EKG Findings:: Ectopic atrial tachycardia, rate 120 bpm WI interval 157 ms QT/QTc 311/387 ms left axis deviation, complete right bundle branch block, no ST elevations or depressions, no STEMI. reviewed EKG from 07/20/2024, no new ST elevations or depressions from prior, largely unchanged from prior EKG Procedures - Intubation Sedative: Etomidate Laryngoscope: Rajesh Size: 3 Assist Device Used: other (Glydescope) ET Tube Size: 8 ET Tube Uncuffed: No Tube Secured Depth (cm): 26 Tube Secured Location: teeth Tube Placement Confirmation: visualized tube passing through cords, equal breath sounds bilaterally, no breath sounds over epigastrium, confirmation by capnometry Patient Tolerated Procedure: well Intubation Complications: none Medical Decision Making - Medical Decision Making Was pt. sent in by a medical professional or institution (, PA, DIRECTOR NON PROFIT, urgent care, hospital, or retirement...) When possible be specific @ -No Did you speak to anyone other than the patient for history (EMS, parent, family, police, friend...)? What history was obtained from this source Spoke with EMS personnel and patient's who assisted in providing history, patient states last known well was 8 PM last night Did you review nursing and triage notes (agree or disagree)? Why? @ -I reviewed nursing and triage notes Were old charts reviewed (outside hosp., previous admission, EMS record, old EKG, old radiological studies, urgent care reports/EKG's, retirement records)? Report findings @ -Medical records reviewed reviewed ED note from when patient was here June 2024 for seizure-like activity and left-sided weakness, ultimately patient did not receive TNK and was transferred to [facility] out of concern for status epilepticus Differential Diagnosis (chest pain, altered mental status, abdominal pain women, abdominal pain men, vaginal bleeding, weakness, fever, dyspnea, syncope, headache, dizziness, GI bleed, back pain, seizure, CVA, palpatations, mental health, musculoskeletal)? Differential Altered Mental Status: Hypoglycemia, DKA, hypercapnia, ETOH, overdose, CO poisoning, trauma, myxedema coma, HTN encephalopathy, infection, encephalitis, psychosis, intercranial hemorrhage, hepatic encephalopathy, meningitis, CVA, this is not meant to be an all-inclusive list EKG interpreted by me (3pts min.). @ -As above X-rays interpreted by me (1pt min.). @ET tube ~3 cm above the melany, no pneumothorax CT interpreted by me (1pt min.). CT brain reviewed myself I see no evidence of hemorrhage or mass effect, CTA liliam ws no evidence of large vessel occlusion or dissection, did appear to show ETT at the melany bordering on entering Right mainstem bronchus so ETT was retracted about 2 cm and CXR confirmed ETT more appropriately positioned U/S interpreted by me (1pt. min.). @ -None done What testing was considered but not performed or refused? (CT, X-rays, U/S, labs)? Why? @ -None What meds were considered but not given or refused? Why? @TNK was considered however confirmed with pt's that patient's last known well was 8 PM, outside the window for tNK administration Did you discuss the management of the patient with other professionals (professionals i.e. , PA, DIRECTOR NON PROFIT, lab, RT, psych nurse, socially responsible investment adviser, creosoting engineer, teacher, juvenile corrections officer, case loader operator)? Give summary @Case was discussed with Dr. To, please see ED course per recommendations, ultimately recommended patient be transferred for continuous EEG Was smoking cessation discussed for >3mins.? @ -No Was critical care preformed (if so, how long)? Yes 45 minutes Were there social determinants of health that impacted care today? How? (Homeles sness, low income, unemployed, alcoholism, drug addiction, transportation, low edu. Level, literacy, decrease access to med. care, long-term, rehab)? @ -No Was there de-escalation of care discussed even if they declined (Discuss DNR or withdrawal of care, Hospice)? CODE STATUS was discussed with patient's over the phone however she is unable to decide his CODE STATUS at this time so he will remain a full code What co-morbidities impacted this encounter? (DM, HTN, Smoking, COPD, CAD, Cancer, CVA, ARF, Chemo, Hep., AIDS, mental health diagnosis, sleep apnea, morbid obesity)? Prior CVA Was patient admitted / discharged? Hospital course, mention meds given and route, prescriptions, significant lab abnormalities, going to OR and other pertinent info. @Transferred to [facility]-patient is an 83-year-old male with a past medical hx prior CVA presenting today for unresponsiveness, 2-30-second seizures prior to arrival, agonal respirations requiring assisted ventilation, blood glucose 179 prior to arrival, no blood pressure check prior to arrival. Seen and assessed on arrival, he is unresponsive, he has pinpoint pupils left gaze deviation, does not withdraw extremities to painful stimuli, does not respond to sternal rub. Does have some dependant lividity to his trunk, but 2+ radial pulses and dorsalis pedis pulses bilateral with otherwise benign abdominal exam. No signs of head trauma. Patient intubated for airway protection. Stroke alert called due to left gaze deviation. CT, CTA performed, no evidence of hemorrhage or large vessel occlusion on my assessment. Dr. Quintanilla called back, if patient within window recommends TNK however discuss with . I called patient's , Samantha, states last known well was 8 PM so patient is not a candidate for TNK as he is outside of the 4.5 hour window. Discussed with her plan for transfer to [facility], she requested transfer to [facility] however discussed with her there is no neuro interventionalist there and he will require a neurointerventional list and continuous EEG, and the neuroninterventionalist hydraulic controls technician following the pts case is at [facility]. Ultimately she was agreeable to transfer. Case discussed with cain [facility] accepts pt for transfer. Patient to be transferred on propofol, fentanyl drip, IV fluids. Of note, pt was hypotensive prior to transfer which improved with down titrating propofol and adminstering fluids. Pt stabilized and transferred to [facility] . Undiagnosed new problem with uncertain prognosis? @ -No Drug Therapy requiring intensive monitoring for toxicity (Heparin, Nitro, Insulin, Cardizem)? @propofol, fentanyl Were any procedures done? @ -No Diagnosis/symptom? Seizures, status epilepticus Acute, or Chronic, or Acute on Chronic? Acute Uncomplicated (without systemic symptoms) or Complicated (systemic symptoms)? complicated Side effects of treatment? @ -No Exacerbation, Progression, or Severe Exacerbation? @ -No Poses a threat to life or bodily function? How? (Chest pain, [place], [place], pneumonia, PE, COPD, DKA, ARF, appy, cholecystitis, CVA, Diverticulitis, Homicidal, Suicidal, threat to staff... and all critical care pts) Yes - Lab Data Result diagrams: 11/15/24 00:29 11/15/24 00:29 Lab Results 11/15/24 11/15/24 11/15/24 Range/Units 00:23 00:29 00:29 WBC 21.1 H (3.8-10.6) k/uL RBC 5.21 (4.30-5.90) m/uL Hgb 15.1 (13.0-17.5) gm/dL Hct 50.0 (39.0-53.0) % MCV 96.1 (80.0-100.0) fL MCH 29.0 (25.0-35.0) pg MCHC 30.2 L (31.0-37.0) g/dL RDW 13.8 (11.5-15.5) % Plt Count 306 (150-450) k/uL MPV 8.1 Neutrophils % 50 % Lymphocytes % 38 % Monocytes % 7 % Eosinophils % 1 % Basophils % 1 % Neutrophils # 10.6 H (1.3-7.7) k/uL Lymphocytes # 8.0 H (1.0-4.8) k/uL Monocytes # 1.5 H (0-1.0) k/uL Eosinophils # 0.2 (0-0.7) k/uL Basophils # 0.2 (0-0.2) k/uL Hypochromasia Marked PT 10.5 (10.0-12.5) sec INR 0.9 (<1.2) APTT 32.2 H (22.0-30.0) sec Sample Site ABG pH (7.35-7.45) ABG pCO2 (35-45) mmHg ABG pO2 (83-108) mmHg ABG HCO3 (21-25) mmol/L ABG Total CO2 (19-24) mmol/L ABG O2 Saturation (94-97) % ABG Base Excess mmol/L Jesus Test Hemoglobin (13.0-17.5) gm/dL FiO2 % Sodium (137-145) mmol/L Potassium (3.5-5.1) mmol/L Chloride (98-107) mmol/L Carbon Dioxide (22-30) mmol/L Anion Gap mmol/L BUN (9-20) mg/dL Creatinine (0.66-1.25) mg/dL Est GFR (CKD-EPI)AfAm (>60 ml/min/1.73 sqM) Est GFR (CKD-EPI)NonAf (>60 ml/min/1.73 sqM) Glucose (74-99) mg/dL POC Glucose (mg/dL) 179 H (70-110) mg/dL POC Glu [employer] ID [place] Calcium (8.4-10.2) mg/dL Total Bilirubin (0.2-1.3) mg/dL AST (17-59) U/L ALT (4-49) U/L Alkaline Phosphatase (38-126) U/L Creatine Kinase (55-170) U/L Troponin I (0.000-0.034) ng/mL Total Protein (6.3-8.2) g/dL Albumin (3.5-5.0) g/dL 11/15/24 11/15/24 11/15/24 Range/Units 00:29 00:29 01:08 WBC (3.8-10.6) k/uL RBC (4.30-5.90) m/uL Hgb (13.0-17.5) gm/dL Hct (39.0-53.0) % MCV (80.0-100.0) fL MCH (25.0-35.0) pg MCHC (31.0-37.0) g/dL RDW (11.5-15.5) % Plt Count (150-450) k/uL MPV Neutrophils % % Lymphocytes % % Monocytes % % Eosinophils % % Basophils % % Neutrophils # (1.3-7.7) k/uL Lymphocytes # (1.0-4.8) k/uL Monocytes # (0-1.0) k/uL Eosinophils # (0-0.7) k/uL Basophils # (0-0.2) k/uL Hypochromasia PT (10.0-12.5) sec INR (<1.2) APTT (22.0-30.0) sec Sample Site rrad ABG pH 7.18 L* (7.35-7.45) ABG pCO2 31 L (35-45) mmHg ABG pO2 >420 H (83-108) mmHg ABG HCO3 12 L (21-25) mmol/L ABG Total CO2 13 L (19-24) mmol/L ABG O2 Saturation 99.8 H (94-97) % ABG Base Excess -15.3 mmol/L Jesus Test Yes Hemoglobin 12.9 L (13.0-17.5) gm/dL FiO2 100 % Sodium 141 (137-145) mmol/L Potassium 4.6 (3.5-5.1) mmol/L Chloride 98 (98-107) mmol/L Carbon Dioxide 8 L* (22-30) mmol/L Anion Gap 35 mmol/L BUN 16 (9-20) mg/dL Creatinine 1.43 H (0.66-1.25) mg/dL Est GFR (CKD-EPI)AfAm 53 (>60 ml/min/1.73 sqM) Est GFR (CKD-EPI)NonAf 46 (>60 ml/min/1.73 sqM) Glucose 211 H (74-99) mg/dL POC Glucose (mg/dL) (70-110) mg/dL POC Glu Mechanic And Welder ID Calcium 9.9 (8.4-10.2) mg/dL Total Bilirubin 0.9 (0.2-1.3) mg/dL AST 28 (17-59) U/L ALT 26 (4-49) U/L Alkaline Phosphatase 87 (38-126) U/L Creatine Kinase 140 (55-170) U/L Troponin I <0.012 (0.000-0.034) ng/mL Total Protein 8.1 (6.3-8.2) g/dL Albumin 5.1 H (3.5-5.0) g/dL Disposition Clinical Impression: Status epilepticus Disposition: OTHER INSTITUTION NOT DEFINED Condition: Critical Instructions (If sedation given, give patient instructions): Seizure/Epilepsy Discharge Instructions & Follow-Up Referrals: Frankie Ryan MD [Primary Care Provider] - 1-2 days - Out of Hospital Transfer - Req. Specs Out of Hospital Transfer - Requested Specifics: Other Emergency Center ([facility])
[2024-11-15] MEDS: levETIRAcetam IV 3,000 MG in SODIUM CHLORIDE 0.9% 250 ML IVPB ONE (01:03)
[2024-11-15 01:06] LABS: African American GFR (CKD) 53 (>60 ml/min/1.73 sqM); Albumin 5.1 g/dL (3.5-5.0); Anion Gap 35 mmol/L; Blood Urea Nitrogen 16 mg/dL (9-20); Calcium 9.9 mg/dL (8.4-10.2); Chloride 98 mmol/L (98-107); Creatine Kinase 140 U/L (55-170); Glucose 211 mg/dL (74-99); Non-African American GFR(CKD) 46 (>60 ml/min/1.73 sqM); Sodium 141 mmol/L (137-145); Total Bilirubin 0.9 mg/dL (0.2-1.3); Total Protein 8.1 g/dL (6.3-8.2)
[2024-11-15 01:13] LABS: INR 0.9 (<1.2); Partial Thromboplastin Time 32.2 sec (22.0-30.0); Prothrombin Time 10.5 sec (10.0-12.5)
[2024-11-15 01:15] LABS: ABG Base Excess -15.3 mmol/L; ABG HCO3 12 mmol/L (21-25); ABG Oxygen Saturation 99.8 % (94-97); ABG PCO2 31 mmHg (35-45); ABG TCO2 13 mmol/L (19-24); Allen Test Performed? Yes
[2024-11-15 01:17] LABS: ABG PH 7.18 (7.35-7.45); ABG PO2 >420 mmHg (83-108)
--- NOTE | 2024-11-15 01:18 | XR ---
EXAM: XR Chest, 1 View CLINICAL HISTORY: ITS.REASON XR Reason: intubated code stroke TECHNIQUE: Frontal view of the chest. COMPARISON: No relevant prior studies available. FINDINGS: Lungs: Unremarkable. No consolidation. Pleural space: Unremarkable. No pneumothorax. Heart: Unremarkable. No cardiomegaly. Mediastinum: Unremarkable. Normal mediastinal contour. Bones/joints: Unremarkable. No acute fracture. Tubes, lines and devices: Endotracheal tube with its tip above the melany. Esophageal catheter seen with its tip extending below left hemidiaphragm. IMPRESSION: No acute findings in the chest.
[2024-11-15] MEDS: SODIUM CHLORIDE 0.9% 1,000 ML IV ONE (01:21)
[2024-11-15 01:24] VITALS: RESP 18
--- NOTE | 2024-11-15 01:24 | CT ---
EXAM: CT Angiography Head With Intravenous Contrast CLINICAL HISTORY: ITS.REASON CT Reason: Neuro deficit, acute, stroke suspected TECHNIQUE: Axial computed tomographic angiography images of the head with intravenous contrast. This CT exam was performed using one or more of the following dose reduction techniques: automated exposure control, adjustment of the mA and/or kV according to patient size, and/or use of iterative reconstruction technique. MIP reconstructed images were created and reviewed. COMPARISON: 07/20/2024 FINDINGS: Limitations: Contrast bolus timing and motion limits exam. Right internal carotid artery: Calcified plaque in the carotid siphons. Some resultant stenosis, greatest in the right clinoid segment which is moderate. No aneurysm. Right anterior cerebral artery: No occlusion or significant stenosis. No aneurysm. Right middle cerebral artery: No occlusion or significant stenosis. No aneurysm. Right posterior cerebral artery: No occlusion or significant stenosis. No aneurysm. Right vertebral artery: Calcified plaque causes mild to moderate stenosis in the intracranial vertebral arteries. Left internal carotid artery: No acute findings. Intracranial segment is patent with no significant stenosis. No aneurysm. Left anterior cerebral artery: No occlusion or significant stenosis. No aneurysm. Left middle cerebral artery: No occlusion or significant stenosis. No aneurysm. Left posterior cerebral artery: No occlusion or significant stenosis. No aneurysm. Left vertebral artery: See above. Basilar artery: No occlusion or significant stenosis. No aneurysm. Other vasculature: Atherosclerotic narrowings in the intracranial arteries. IMPRESSION: 1. Limited study. 2. No large vessel occlusion or aneurysm. EXAM: CT Angiography Neck With Intravenous Contrast CLINICAL HISTORY: ITS.REASON CT Reason: Neuro deficit, acute, stroke suspected TECHNIQUE: Routine carotid CT angiography protocol was performed with intravenous contrast. NASCET criteria using the distal ICAs for comparison were used for evaluation of stenoses. This CT exam was performed using one or more of the following dose reduction techniques: automated exposure control, adjustment of the mA and/or kV according to patient size, and/or use of iterative reconstruction technique. MIP reconstructed images were created and reviewed. COMPARISON: 07/20/2024 FINDINGS: Limitations: Contrast bolus timing limits this exam. VASCULATURE: Right common carotid artery: No significant stenosis. No dissection or occlusion. Right internal carotid artery: 50-60% stenosis in the proximal right internal carotid artery. Calcified plaque in the carotid bifurcations and proximal internal carotid arteries. Right external carotid artery: No occlusion. Right vertebral artery: No significant stenosis. No dissection or occlusion. Left common carotid artery: No significant stenosis. No dissection or occlusion. Left internal carotid artery: Approximately 20% stenosis in the proximal left internal carotid artery. Left external carotid artery: No occlusion. Left vertebral artery: No significant stenosis. No dissection or occlusion. NECK: Bones/joints: No acute findings. Soft tissues: Unremarkable. Lung apices: No acute disease. Mediastinum: Patulous esophagus. Tubes, lines and devices: ET tube 8 mm above the melany. Recommend retraction by 2 cm. CAROTID STENOSIS REFERENCE USING NASCET CRITERIA: % ICA stenosis = (1 - narrowest ICA diameter/diameter of distal cervical ICA) x 100. Mild - <50% stenosis. Moderate - 50-69% stenosis. Severe - 70-94% stenosis. Near occlusion - 95-99% stenosis. Occluded - 100% stenosis. IMPRESSION: 1. 50-60% stenosis in the proximal right internal carotid artery. 2. Limited study. 3. ET tube 8 mm above the melany. Recommend retraction by 2 cm.
[2024-11-15] MEDS: fentaNYL (PF). 1,000 MCG in SODIUM CHLORIDE 0.9% 80 ML IV SCH (01:25)
--- NOTE | 2024-11-15 01:28 | CT ---
EXAM: CT Head Without Intravenous Contrast CLINICAL HISTORY: ITS.REASON CT Reason: Neuro deficit, acute, stroke suspected TECHNIQUE: Axial computed tomography images of the head/brain without intravenous contrast. CTDI is 48.8 mGy and DLP is 1143 mGy-cm. This CT exam was performed using one or more of the following dose reduction techniques: automated exposure control, adjustment of the mA and/or kV according to patient size, and/or use of iterative reconstruction technique. 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 Moderate chronic low-attenuation cerebral white matter. Old lacunar infarcts the left basal ganglia. Some encephalomalacia from old infarct right parietal occipital temporal lobe. No hemorrhage. Ventricles: No acute findings. No ventriculomegaly. Bones/joints: Unremarkable. No acute fracture. Soft tissues: Unremarkable. Sinuses: Mild mucosal thickening in the right maxillary sinus. Mastoid air cells: Unremarkable as visualized. No mastoid effusion. IMPRESSION: No acute findings in the head/brain. Moderate chronic small vessel ischemic disease and sequela of old infarcts.
[2024-11-15 01:46] LABS: ALT 26 U/L (4-49); AST 28 U/L (17-59); Alkaline Phosphatase 87 U/L (38-126); Carbon Dioxide 8 mmol/L (22-30); Potassium 4.6 mmol/L (3.5-5.1)
[2024-11-15 01:56] VITALS: BP 112/72; PULSE 97; TEMP 99.5
== END 2024-11-15 01:55 | disposition other institution (70) ==
LOC: EC 00:20
DX: G40.901 Epilepsy, unspecified, not intractable, with status epilepticus (principal); Z86.73 Personal history of transient ischemic attack (TIA), and cerebral infarction without residual deficits
CPT/HCPCS: 99285; 31500; 96365; 96375 ×2; 96376; 96361; 51798; 36415; 36600; 94002; 93005; 80053; 82550; 82805; 84484; 85025; 85610; 85730; 87070; 87205; 71045; 70496; 70450; 70498; J2250; J3010 ×2; J1953; J2704; Q9967